=== PATIENT | male | born 1995 | race Caucasian/White ===

== ENCOUNTER 2017-03-21 22:23 | Emergency (ER) | payer MEDICAID ==
[~2017-03-21] VITALS: Ht 175.3 cm; Wt 78.9 kg
[2017-03-21 22:30] VITALS: BP 124/58
[2017-03-21] MEDS ORDERED: ACETAMINOPHEN 325 MG TAB PO ONE (22:35)
[2017-03-21] MEDS ORDERED: ACETAMINOPHEN 325 MG TAB ONE (22:40)
--- NOTE | 2017-03-21 22:43 | NUR ---
MEDICATED, NASAL SWAB AND THROAT SWABS DONE IN TRIAGE.
--- NOTE | 2017-03-21 22:47 | NUR ---
PT AMB W/O ASST TO ER BED 1
--- NOTE | 2017-03-21 22:50 | NUR ---
PATIENT IS A 21 Y/O MALE WHO PRESENTS TO THE ED C/O COUGH. PT STATES, "I WAS AT THE DOCTOR AND MY MEDICINE WASN'T WORKING FOR THE COUGH." PT STATES 5/10 ACHING BACK PAIN THAT DOES NOT RADIATE. PT DENIES CP, SOB, N/V/D. NOTED NON-PRODUCTIVE COUGH IN ED, LUNG SOUNDS CLEAR BL. PT AAOX4, RR EVEN/UNLABORED. PT REPOSITIONED FOR COMFORT, BED IN LOWEST POSITION. ER MD DR. MARTINEZ NOTIFIED. WILL CONTINUE TO MONITOR.
[2017-03-21] MEDS ORDERED: IBUPROFEN 800 MG TAB PO ONE (23:15)
[2017-03-21] MEDS ORDERED: IBUPROFEN 800 MG TAB ONE (23:22)
[2017-03-21] MEDS ORDERED: AZITHROMYCIN 250 MG TAB PO ONE (23:45)
[2017-03-21] MEDS ORDERED: AZITHROMYCIN 250 MG TAB ONE (23:52)
[2017-03-22 00:20] VITALS: BP 125/65
--- NOTE | 2017-03-22 00:20 | NUR ---
Patient discharged with v/s stable. Written and verbal after care instructions given and explained. Patient alert, oriented and verbalized understanding of instructions. Ambulatory with steady gait. All questions addressed prior to discharge. ID band removed. Patient advised to follow up with PMD. Rx of ZITHROMAX 250MG given. Patient educated on indication of medication including possible reaction and side effects. Opportunity to ask questions provided and answered.
== END 2017-03-22 00:20 | disposition home or self-care (01) ==
LOC: MED 22:23
DX: J06.9 Acute upper respiratory infection, unspecified (principal); Z88.0 Allergy status to penicillin
CPT/HCPCS: 36415; 71045; 87081; 87804; 99284; Q0092